=== PATIENT | female | born 1975 | race Two or more races ===

== ENCOUNTER → 2017-05-19 | Outpatient (CLI) | payer OTHER ==
--- NOTE | ~2017-05-19 | MY29 ---
[facility] A Service of [facility] RADIOLOGY TEXT RESULTS PATIENT: KARLIE MCWILLIAMS LOCATION: [facility] : 77 UNIT #: [id number] AGE: [address]: SHAYLEE POLLARD APRN SEX: F ORDER DR: [id number] [facility] [address] [place], [place] [address] [id number] O MR#: [id number] #: [id number] NAME: KARLIE MCWILLIAMS : 1975 SEX: F STUDY DATE/TIME: 05/19/2017 13:42 UNIT: [facility] ROOM: STUDY DESCRIPTION: MY DORIS SCREENING W/ CAD BILAT Attending Physician: Ton Pollard Aprn Referring Physician: Ton Pollard Aprn Ordering Physician: Ton Pollard Aprn Primary Care Physician: Arjun Flores M.D. MEDICAL IMAGING REPORT This report is preliminary unless electronic signature is present EXAM Digital screening mammogram, 05/19/2017; [facility]. HISTORY 41-year-old woman, no risk elevation. Annual screen. COMPARISON Diagnostic mammogram with ultrasound, 06/12/2015. FINDINGS Digital imaging of each breast was completed utilizing screening protocol. Review includes FDA-approved CAD device. Breast parenchyma is moderately dense. Numerous circumscribed nodules are now imaged in both breast with the dominant mass again projecting upper central left breast. The numerous nodules have well-circumscribed margins consistent with numerous cysts in each breast. This represents a significant progression from 2014. I see no suspicious mass characteristics at this time. There are no interval occurring microcalcifications and no visualized architectural disturbance. IMPRESSION Progressive macrocystic mastopathy now noted in both breasts. Dominant circumscribed mass. Stable left breast. Annual screening recommended. BIRADS 2, benign. Patients over the age of 40 are entered into a reminder system with target due date for the next mammogram. A result letter will also be sent to the patient. BIRADS: 2 Benign findings. Dictated by... [facility] A Service of [facility] RADIOLOGY TEXT RESULTS PATIENT: KARLIE MCWILLIAMS LOCATION: [facility] : 77 UNIT #: [id number] AGE: [address]: SHAYLEE POLLARD APRN SEX: F ORDER DR: Jose Guadalupe Ivy M.D. THIS IS AN ELECTRONICALLY VERIFIED REPORT Jose Guadalupe Ivy M.D. at 05/22/2017 8:05 AM ZOFIA/jhony TD: 05/19/2017 17:43 JOB #: [id number] MEDICAL IMAGING REPORT Page 1 of 1 COPY
== END | disposition home or self-care (01) ==
LOC: CWCC 12:49
DX: Z12.31 Encounter for screening mammogram for malignant neoplasm of breast (principal); N60.12 Diffuse cystic mastopathy of left breast; N60.11 Diffuse cystic mastopathy of right breast; N63 Unspecified lump in breast
CPT/HCPCS: G0202

== ENCOUNTER → 2017-06-27 | Outpatient (CLI) | payer OTHER ==
--- NOTE | ~2017-06-27 | CR63 ---
[facility] A Service of [facility] RADIOLOGY TEXT RESULTS PATIENT: KARLIE MCWILLIAMS LOCATION: [facility] : 77 UNIT #: [id number] AGE: [address]: AMIE LINTON APRN SEX: F ORDER DR: [id number] [facility] [address] [place], [place] [address] [id number] O MR#: [id number] #: [id number] NAME: KARLIE MCWILLIAMS : 1975 SEX: F STUDY DATE/TIME: 06/27/2017 14:57 UNIT: [facility] ROOM: STUDY DESCRIPTION: CR Chest 2 View Attending Physician: Jesus Linton M.D. Referring Physician: Jesus Linton M.D. Ordering Physician: Jesus Linton M.D. Primary Care Physician: Arjun Flores M.D. MEDICAL IMAGING REPORT This report is preliminary unless electronic signature is present EXAM Chest, 06/27/2017, [facility]. HISTORY 41-year-old woman cough, short of air, congestion past 6 weeks. COMPARISON None. FINDINGS PA and lateral chest views show normal cardiac size and configuration. Hilar structures and mediastinal contours are preserved. Right lung is clear. There is a patchy infiltrate in the left perihilar and lower lobe areas. I see no effusion. IMPRESSION Probable patchy pneumonia left lower lobe. Short-interval followup recommended. Dictated by... Jose Guadalupe Ivy M.D. THIS IS AN ELECTRONICALLY VERIFIED REPORT Jose Guadalupe Ivy M.D. at 06/28/2017 8:08 AM ZOFIA/sunshine TD: 06/27/2017 16:59 JOB #: [id number] MEDICAL IMAGING REPORT Page 1 of 1 COPY
== END | disposition home or self-care (01) ==
LOC: CRAD 14:42
DX: R05 Cough (principal); R06.02 Shortness of breath
CPT/HCPCS: 71020